=== PATIENT | female | born 1960 | race Caucasian/White ===

== ENCOUNTER → 2019-11-12 | Outpatient (CLI) | payer BC ==
[~2019-11-12] MED LIST: EUTHYROX100 MCG PO; HUMALOG KW100 UNIT/1 SUBQ; LANTUS SOL100 UNIT/1 SUBQ
== END ==
LOC: LAB 09:22
PROVIDERS: ATTEND Student in an Organized Health Care Education/Training Program
DX: Z01.812 Encounter for preprocedural laboratory examination (principal); Z11.59 Encounter for screening for other viral diseases